=== PATIENT | female | born 1985 | race Caucasian/White ===

== ENCOUNTER 2024-09-14 23:23 | Outpatient (CLI) | payer MEDICARE, SELFPAY | END 2024-09-14 23:24 | disposition home or self-care (01) | LOC: AMB 09-15 08:54 | PROVIDERS: PCP Family Medicine; Visit Provider Emergency Medicine Emergency Medical Services | DX: F29 Unspecified psychosis not due to a substance or known physiological condition (principal); F41.1 Generalized anxiety disorder | CPT/HCPCS: A0425; A0427 ==